=== PATIENT | male | born 1985 | race Caucasian/White ===

== ENCOUNTER → 2017-07-05 | Outpatient (CLI) | payer BC ==
--- NOTE | 2017-07-05 17:17 | ECHOF ---
Referral Reason:R00.2 Palpitations MEASUREMENTS -------- HEIGHT: 188.0 cm WEIGHT: 117.9 kg BP: RVIDd: 2.7 cm (< 3.3) IVSd: 1.0 cm (0.6 - 1.1) LVIDd: 5.0 cm (3.9 - 5.3) LVPWd: 1.0 cm (0.6 - 1.1) IVSs: 1.4 cm LVIDs: 3.8 cm LVPWs: 1.4 cm LAESV Index (A-L): 32.21 ml/m Ao Diam: 4.1 cm (2.0 - 3.7) AV Cusp: 2.8 cm (1.5 - 2.6) LA Diam: 4.0 cm (2.7 - 3.8) EPSS: 0.4 cm MV E Paxton: 0.70 m/s MV DecT: 192 ms MV A Pa[place]: 0.56 m/s MV E/A Ratio: 1.25 RAP: 5.00 mmHg RVSP: 10.01 mmHg MV EF SLOPE: 108.89 mm/s (70 - 150) MV EXCURSION: 2.19 cm (> 18.000) FINDINGS -------- Sinus rhythm. This was a technically good study. The left ventricular size is normal. Left ventricular wall thickness is normal. Overall left vent ricular systolic function is normal with, an EF between 55 - 60 %. The right ventricle is normal in size and function. Normal LA size by volume 22+/-6 ml/m2. The right atrium is normal in size. The aortic valve is trileaflet, and appears structurally normal. No aortic stenosis or regurgitation. The mitral valve is normal. There is trace mitral regurgitation. Trace tricuspid regurgitation present. Right ventricular systolic pressure is normal at < 35 mmHg. There is no evidence of pulmonary hypertension. The pulmonic valve is normal. The aortic root size is normal. Normal inferior vena cava with normal inspiratory collapse consistent with estimated right atrial pre ssure of 5 mmHg. There is no pericardial effusion. CONCLUSIONS -------- 1. Sinus rhythm. 2. This was a technically good study. 3. The left ventricular size is normal. 4. Left ventricular wall thickness is normal. 5. Overall left ventricular systolic function is normal with, an EF between 55 - 60 %. 6. Normal LA size by volume 22+/-6 ml/m2. 7. The aortic valve is trileaflet, and appears structurally normal. No aortic stenosis or regurgitati on. 8. There is trace mitral regurgitation. 9. Trace tricuspid regurgitation present. 10. Right ventricular systolic pressure is normal at < 35 mmHg. 11. There is no evidence of pulmonary hypertension. 12. The aortic root size is normal. 13. There is no pericardial effusion. [employer] PLANT OPERATOR: John Drew RDCS
== END ==
LOC: RADECHMAIN 16:03
PROVIDERS: ATTEND Family Medicine
DX: I08.1 Rheumatic disorders of both mitral and tricuspid valves (principal)
CPT/HCPCS: 93306

== ENCOUNTER → 2019-04-04 | Outpatient (CLI) | payer BC ==
--- NOTE | 2019-04-04 19:56 | CONS ---
CONSULTATION REASON FOR CONSULTATION: Sleep apnea. This is a 33-year-old male patient who was referred to me. His main complaint is feeling tired all the time. 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 He is very busy and he runs around all the time. By the time he comes home, sometimes he has difficulties in shutting down his brain and winding down and getting himself ready to go to sleep. Sometimes it takes him more than 30 minutes to fall asleep, yet this is not a constant pattern. He goes to bed around 11:00 p.m., wakes up at 6 a.m. in the morning. Not sure if he quits breathing. Not sure if he wakes up gasping for air. Sleep seems to be somewhat fragmented. He wakes up with a dry mouth and seems to be restless, especially in his legs while asleep. No recent weight gain. He has hypertension and hyperlipidemia as comorbid conditions. No history of any motor vehicle accident because of feeling drowsy or sleepy. He sleeps on his side. No sleepwalking or sleeptalking. No sleep paralysis. No hallucinations. No cataplexy. No naps. PAST MEDICAL HISTORY: Hypertension and hyperlipidemia. SURGICAL HISTORY: Tonsillectomy. DRUG ALLERGIES: SULFA AND PENICILLINS. OUTPATIENT MEDICATIONS: Outpatient medications include: 1. Lipitor 20 mg p.o. daily. 2. Hydrochlorothiazide 25 mg p.o. daily. 3. Losartan 100 mg p.o. daily. 4. [place]-3 fish oil. 5. Probiotics. SOCIAL HISTORY: Nonsmoker. No use of alcoholism. No history of IV drugs. FAMILY HISTORY: Brother has obstructive sleep apnea. REVIEW OF SYSTEMS: Fourteen-point review of systems was done. No recent weight gain or weight loss. No history of any vivid dreams during naps. He drinks 1 or 2 cups of coffee mainly in the morning. No late time drinking of alcohol. No significant exercise. He describes his bedroom environment to be quite comfortable and soothing for sleep. No grinding of the teeth. No nocturnal heartburn or chest pain. No shortness of breath, palpitation, anxiety or panic attacks. PHYSICAL EXAMINATION: VITAL SIGNS: BP is 145/84, pulse 82, respirations 16, temperature 98.2, saturation 96% on room air. Height is 6 feet 2 inches, weight 258, and neck size 16-1/4 inches. GENERAL APPEARANCE: Calm, comfortable. HEAD: Atraumatic, normocephalic. NECK: Supple. No JVD. No goiter or neck masses. Mallampati class I. LUNGS: Clear to auscultation. HEART: Heart sounds are regular rate and rhythm. Normal S1, S2. No S3, S4. No murmurs. ABDOMEN: Soft, nontender. No organomegaly. EXTREMITIES: No edema. No cyanosis or clubbing. NEUROLOGIC: Awake and alert. No focal neurological deficits. PSYCHIATRIC: Negative for anxiety or depression. SKIN: Negative for any wounds or ulceration. IMPRESSION: 1. Chronic fatigue with limited sleepiness. [place] score is 3. Consider obstructive sleep apnea, although my clinical suspicion is low. 2. Hypertension. 3. Hyperlipidemia. PLAN: 1. Proceed with a home sleep study. 2. Optimize sleep hygiene measures. 3. Relaxation techniques need to be implemented. The patient was given appropriate instructions to promote sleep at nighttime. 4. Will continue to follow and further recommendations are to follow based on the results of the home sleep study. MMODL / IJN: [id number] /
== END | disposition home or self-care (01) ==
LOC: SLEEP 16:09
PROVIDERS: ATTEND Internal Medicine Critical Care Medicine
DX: G47.33 Obstructive sleep apnea (adult) (pediatric) (principal); R53.82 Chronic fatigue, unspecified; I10 Essential (primary) hypertension; E78.5 Hyperlipidemia, unspecified; R68.2 Dry mouth, unspecified; Z79.899 Other long term (current) drug therapy; Z88.2 Allergy status to sulfonamides; Z88.0 Allergy status to penicillin
CPT/HCPCS: 99211

== ENCOUNTER 2022-05-22 10:20 | Emergency (ER) | payer BC ==
[2022-05-22 10:25] VITALS: RESP 18; TEMP 97.7
[2022-05-22] MEDS ORDERED: SODIUM CHLORIDE 0.9% 1,000 ML IV STA (10:44)
[2022-05-22] MEDS ORDERED: diphenhydrAMINE 50 MG/ML 1 ML VIAL IVP STA (10:44)
[2022-05-22] MEDS ORDERED: FAMOTIDINE 20 MG/2 ML VIAL IV STA (10:44)
--- NOTE | 2022-05-22 11:16 | ED ---
Skin/Abscess/FB HPI - General Chief complaint: Skin/Abscess/Foreign Body Stated complaint: Hives Time Seen by Provider: 05/22/22 10:27 Source: patient, RN notes reviewed Mode of arrival: ambulatory Limitations: no limitations - History of Present Illness Initial comments: This is a 36-year-old male who presents to the emergency department for a rash. States that this been present for the last 1-2 weeks. He went to his primary care provider when this first occurred. He was given a steroid shot and put on a five-day course of prednisone. States that he did not like how it made him feel, however it did take the edge off of the rash. States that it is very itchy and he is unable to get it under control. Unsure if he may have come into contact with anything, but has changed all of his sheets as well as his diet. Denies taking any new medications. He states that the rash is on his upper and lower extremities, worse on the legs. Denies any history of similar symptoms in the past. He has no chest pain or difficulty breathing. Denies any fevers, chills, sore throat, cough, dyspnea, chest pain, palpitations, abdominal pain, nausea, vomiting, diarrhea, back pain, or headaches. MD complaint: rash Onset/Timin -: week(s) Tetanus Up to Date: yes Location: generalized - Related Data Home Medications Medication Instructions Recorded Confirmed Losartan/Hydrochlorothiazide 1 tab PO DAILY 05/22/22 05/22/22 [Losartan-Hctz 100-12.5 mg Tab] amLODIPine [Norvasc] 5 mg PO HS 05/22/22 05/22/22 Previous Rx's Medication Instructions Recorded dexAMETHasone [Decadron] 6 mg PO DAILY 5 Days #5 tablet 05/22/22 hydrOXYzine HCL [Atarax] 25 mg PO QID PRN #15 tab 05/22/22 Allergies Allergy/AdvReac Type Severity Reaction Status Date / Time amoxicillin [From Augmentin] Allergy Unknown Verified 05/22/22 11:10 clavulanic acid Allergy Unknown Verified 05/22/22 11:10 [From Augmentin] sulfamethoxazole Allergy Unknown Verified 05/22/22 11:10 [From Bactrim] trimethoprim [From Bactrim] Allergy Unknown Verified 05/22/22 11:10 Review of Systems ROS Statement: Those systems with pertinent positive or pertinent negative responses have been documented in the HPI. ROS Other: All systems not noted in ROS Statement are negative. Past Medical History Past Medical History: Hyperlipidemia, Hypertension History of Any Multi-Drug Resistant Organisms: None Reported Past Surgical History: No Surgical Hx Reported Past Psychological History: No Psychological Hx Reported Smoking Status: Never smoker Past Alcohol Use History: None Reported Past Drug Use History: Marijuana General Exam Limitations: no limitations General appearance: alert, in no apparent distress Head exam: Present: atraumatic, normocephalic, normal inspection Respiratory exam: Present: normal lung sounds bilaterally. Absent: respiratory distress, wheezes, rales, rhonchi, stridor Cardiovascular Exam: Present: regular rate, normal rhythm, normal heart sounds. Absent: systolic murmur, diastolic murmur, rubs, gallop, clicks Neurological exam: Present: alert, oriented X3, CN II-XII intact Psychiatric exam: Present: normal affect, normal mood Skin exam: Present: other (Diffuse maculopapular rash with excoriation, most prominent on the upper and lower extremities. No involvement of the palms or soles. Positive dermatographism. Negative Nikolsky sign.) Course Vital Signs 05/22/22 05/22/22 10:21 14:10 Temperature 97.7 F Pulse Rate 82 76 Respiratory 18 18 Rate Blood Pressure 168/123 135/94 O2 Sat by Pulse 99 99 Oximetry Medical Decision Making - Medical Decision Making This is a 36-year-old male who presents to the emergency department for a rash. Was pt. sent in by a medical professional or institution? @ -No Did you speak to anyone other than the patient for history? @ -No Did you review nursing and triage notes? @ -Yes, and I agree, it is accurate with regards to the patient's symptoms. Were old charts reviewed? @ -No Differential Diagnosis? @ -Differential Rash: Roseola, measles, Lyme disease, erythema multiforme, cellulitis, toxic shock syndrome, Wilver Jeffery syndrome, Kawasaki disease, julee mountain spotted fever, contact dermatitis, allergic dermatitis, measles, mumps, rubella, va ricella, meningococcal disease, drug reaction, coxsackievirus, This is not meant to be an all-inclusive list. What testing was considered but not performed? (CT, X-rays, U/S, labs)? Why? @ -None What meds were considered but not given? Why? @ -None Did you discuss the management of the patient with other professionals? @ -No Did you reconcile home meds? @ -No Was smoking cessation discussed for >3mins.? @ -No Was critical care preformed (if so, how long)? @ -No Were there social determinants of health that impacted care today? How? (Homelessness, low income, unemployed, alcoholism, drug addiction, transportation, low edu. Level, literacy, decrease access to med. care, halfway, rehab)? @ -No Was there de-escalation of care discussed even if they declined? (Discuss DNR or withdrawal of care, Hospice)? @ -No What co-morbidities impacted this encounter? (DM, HTN, Smoking, COPD, CAD, Cancer, CVA, Hep., AIDS, mental health diagnosis, sleep apnea, morbid obesity)? @ -None Was patient admitted / discharged? @ -Discharged. Lab work obtained to evaluate for signs of liver or kidney impairment, however lab work revealed no actionable findings. He was given IV fluids, Benadryl, and Pepcid initially. States that this did offer improvement to his symptoms. Discussed that he may not have been on a long enough course of steroids, and these are often the mainstay of treatment. Patient is open to trying an additional steroid. We tried a dose of Decadron in the emergency department, which he states he tolerated much better than the Solu-Medrol. Also states that this further improved his itching. Prescription for 5 day course of Decadron provided as well as a prescription for Atarax with dosing instructions reviewed. Advised that the Atarax may be sedating and he should take it at night until he knows how it affects him. Also recommended continuing to take [id number] Pepcid. I spoke with case management, who was able to get him an appointment with dermatology, however, they do not have an appointment until June, and he will need an official referral from his primary care provider. The appointment was made for 07/02, and a follow-up with his primary care provider was scheduled for 05/26, where he can get an official referral if needed. Undiagnosed new problem with uncertain prognosis? @ -None Drug Therapy requiring intensive monitoring for toxicity (Heparin, Nitro, Insulin, Cardizem)? @ -None Were any procedures done? @ -None Diagnosis/symptom? @ -Urticaria, rash of unknown etiology Acute, or Chronic, or Acute on Chronic? @ -Acute Uncomplicated (without systemic symptoms) or Complicated (systemic symptoms)? @ -Uncomplicated Side effects of treatment? @ -None Exacerbation, Progression, or Severe Exacerbation] @ -Not applicable Poses a threat to life or bodily function? @ -No Return precautions reviewed in depth, the patient is instructed to return to the emergency department with any new, worsening, or concerning symptoms. Patient verbalized understanding. This case was discussed in detail with the attending ED physician, Dr. Guerrero. Presentation, findings, and treatment plan discussed in detail as well. - Lab Data Result diagrams: 05/22/22 11:00 05/22/22 11:00 Lab Results 05/22/22 05/22/22 05/22/22 Range/Units 11:00 11:00 11:00 WBC 8.9 (3.8-10.6) k/uL RBC 5.74 (4.30-5.90) m/uL Hgb 17.8 H (13.0-17.5) gm/dL Hct 50.3 (39.0-53.0) % MCV 87.5 (80.0-100.0) fL MCH 31.0 (25.0-35.0) pg MCHC 35.4 (31.0-37.0) g/dL RDW 12.0 (11.5-15.5) % Plt Count 237 (150-450) k/uL MPV 7.8 Neutrophils % 74 % Lymphocytes % 12 % Monocytes % 7 % Eosinophils % 3 % Basophils % 1 % Neutrophils # 6.6 (1.3-7.7) k/uL Lymphocytes # 1.1 (1.0-4.8) k/uL Monocytes # 0.6 (0-1.0) k/uL Eosinophils # 0.3 (0-0.7) k/uL Basophils # 0.1 (0-0.2) k/uL Sodium 137 (137-145) mmol/L Potassium 3.9 (3.5-5.1) mmol/L Chloride 102 (98-107) mmol/L Carbon Dioxide 23 (22-30) mmol/L Anion Gap 12 mmol/L BUN 22 H (9-20) mg/dL Creatinine 0.88 (0.66-1.25) mg/dL Est GFR (CKD-EPI)AfAm >90 (>60 ml/min/1.73 sqM) Est GFR (CKD-EPI)NonAf >90 (>60 ml/min/1.73 sqM) Glucose 103 H (74-99) mg/dL Calcium 9.6 (8.4-10.2) mg/dL Total Bilirubin 1.6 H (0.2-1.3) mg/dL AST 21 (17-59) U/L ALT 23 (4-49) U/L Alkaline Phosphatase 56 (38-126) U/L C-Reactive Protein <0.5 (<1.0) mg/dL Total Protein 8.2 (6.3-8.2) g/dL Albumin 5.0 (3.5-5.0) g/dL TSH 1.410 (0.465-4.680) mIU/L Urine Color Urine Appearance (Clear) Urine pH (5.0-8.0) Ur Specific [place] (1.001-1.035) Urine Protein (Negative) Urine Glucose (UA) (Negative) Urine Ketones (Negative) Urine Blood (Negative) Urine Nitrite (Negative) Urine Bilirubin (Negative) Urine Urobilinogen (<2.0) mg/dL Ur Leukocyte Esterase (Negative) Treponema pallidum Ab (Nonreactive) Heterophile Antibody Negative (Negative) 05/22/22 05/22/22 Range/Units 11:00 14:07 WBC (3.8-10.6) k/uL RBC (4.30-5.90) m/uL Hgb (13.0-17.5) gm/dL Hct (39.0-53.0) % MCV (80.0-100.0) fL MCH (25.0-35.0) pg MCHC (31.0-37.0) g/dL RDW (11.5-15.5) % Plt Count (150-450) k/uL MPV Neutrophils % % Lymphocytes % % Monocytes % % Eosinophils % % Basophils % % Neutrophils # (1.3-7.7) k/uL Lymphocytes # (1.0-4.8) k/uL Monocytes # (0-1.0) k/uL Eosinophils # (0-0.7) k/uL Basophils # (0-0.2) k/uL Sodium (137-145) mmol/L Potassium (3.5-5.1) mmol/L Chloride (98-107) mmol/L Carbon Dioxide (22-30) mmol/L Anion Gap mmol/L BUN (9-20) mg/dL Creatinine (0.66-1.25) mg/dL Est GFR (CKD-EPI)AfAm (>60 ml/min/1.73 sqM) Est GFR (CKD-EPI)NonAf (>60 ml/min/1.73 sqM) Glucose (74-99) mg/dL Calcium (8.4-10.2) mg/dL Total Bilirubin (0.2-1.3) mg/dL AST (17-59) U/L ALT (4-49) U/L Alkaline Phosphatase (38-126) U/L C-Reactive Protein (<1.0) mg/dL Total Protein (6.3-8.2) g/dL Albumin (3.5-5.0) g/dL TSH (0.465-4.680) mIU/L Urine Color Yellow Urine Appearance Clear (Clear) Urine pH 6.5 (5.0-8.0) Ur Specific [place] 1.019 (1.001-1.035) Urine Protein Negative (Negative) Urine Glucose (UA) Negative (Negative) Urine Ketones 2+ H (Negative) Urine Blood Negative (Negative) Urine Nitrite Negative (Negative) Urine Bilirubin Negative (Negative) Urine Urobilinogen <2.0 (<2.0) mg/dL Ur Leukocyte Esterase Negative (Negative) Treponema pallidum Ab Nonreactive (Nonreactive) Heterophile Antibody (Negative) - Radiology Data Radiology results: report reviewed, image reviewed Disposition Clinical Impression: Rash of unknown etiology, Urticaria Disposition: HOME SELF-CARE Condition: Fair Instructions (If sedation given, give patient instructions): Urticaria (ED), Acute Rash (ED) Additional Instructions: Return to the emergency department with any new, worsening, or concerning symptoms. Take the Decadron daily for 5 days. If you feel like this makes you flushed or your blood pressure gets too high, you can stop taking it. The Atarax can be used up to every 6 hours as needed for itching. Be aware that this may make you sleepy, and you should take it at night until you know how it affects you. Additionally, you can take [id number] Pepcid, which will offer additional benefit to the rash and itching. The steroid cream provided can be used 3-4 times daily. Apply this to the affected areas, but avoid applying to the face or genitals. Follow up with your primary care provider as scheduled and make sure that you get an official dermatology referral for insurance purposes. You have an appointment with them scheduled on 07/02 as listed below. Prescriptions: hydrOXYzine HCL [Atarax] 25 mg PO QID PRN #15 tab PRN Reason: Itching dexAMETHasone [Decadron] 6 mg PO DAILY 5 Days #5 tablet Is patient prescribed a controlled substance at d/c from ED?: No Referrals: Shelton Cardozo MD [STAFF PHYSICIAN] - 07/02/22 9:30 am (Insurance requires a referral from the PCP, make sure to bring this referral to appointment. This appointment is with CALEB Mccartney.) John Lopez MD [Primary Care Provider] - 05/26/22 2:10 pm (Make sure office faxes referral to dermatology so appointment can be kept. )
[2022-05-22 11:32] LABS: ALT 23 U/L (4-49); AST 21 U/L (17-59); African American GFR (CKD) >90 (>60 ml/min/1.73 sqM); Alkaline Phosphatase 56 U/L (38-126); Anion Gap 12 mmol/L; Blood Urea Nitrogen 22 mg/dL (9-20); Calcium 9.6 mg/dL (8.4-10.2); Carbon Dioxide 23 mmol/L (22-30); Chloride 102 mmol/L (98-107); Glucose 103 mg/dL (74-99); Non-African American GFR(CKD) >90 (>60 ml/min/1.73 sqM); Potassium 3.9 mmol/L (3.5-5.1); Sodium 137 mmol/L (137-145); Total Bilirubin 1.6 mg/dL (0.2-1.3); Total Protein 8.2 g/dL (6.3-8.2)
[2022-05-22 11:46] LABS: C Reactive Protein <0.5 mg/dL (<1.0)
[2022-05-22 11:59] LABS: Basophils # (A) 0.1 k/uL (0-0.2); Basophils % (A) 1 %; Eosinophils # (A) 0.3 k/uL (0-0.7); Eosinophils % (A) 3 %; HCT 50.3 % (39.0-53.0); HGB 17.8 gm/dL (13.0-17.5); Lymphocytes # (A) 1.1 k/uL (1.0-4.8); Lymphocytes % (A) 12 %; MCHC 35.4 g/dL (31.0-37.0); MCV 87.5 fL (80.0-100.0); Mean Platelet Volume 7.8; Monocytes # (A) 0.6 k/uL (0-1.0); Monocytes % (A) 7 %; Neutrophils # (A) 6.6 k/uL (1.3-7.7); Neutrophils % (A) 74 %; Platelet Count 237 k/uL (150-450); RBC 5.74 m/uL (4.30-5.90); WBC 8.9 k/uL (3.8-10.6)
[2022-05-22] MEDS ORDERED: DEXAMETHASONE SOD PHOSPHATE 10 MG/ML 1 ML VIAL IVP STA (12:57)
[2022-05-22] MEDS ORDERED: TRIAMCINOLONE 0.1% CREAM 80 GM TUBE TOPICAL STA (12:59)
[2022-05-22] MEDS ORDERED: TRIAMCINOLONE 0.1% CREAM 80 GM TUBE TOPICAL SCH (13:30)
[2022-05-22 14:11] VITALS: BP 135/94; PULSE 76
[2022-05-22 14:15] LABS: Appearance,Urine Clear (Clear); Bilirubin,Urine Negative (Negative); Blood,Urine Negative (Negative); Color,Urine Yellow; Glucose,Urine (UA) Negative (Negative); Ketones,Urine 2+ (Negative); Leukocyte Esterase,Urine Negative (Negative); Nitrite,Urine Negative (Negative); PH, Urine 6.5 (5.0-8.0); Protein,Urine Negative (Negative); Specific Gravity,Urine 1.019 (1.001-1.035); Urobilinogen,Urine <2.0 mg/dL (<2.0)
== END 2022-05-22 14:40 | disposition home or self-care (01) ==
LOC: EC 10:20
DX: L50.9 Urticaria, unspecified (principal); I10 Essential (primary) hypertension; F12.90 Cannabis use, unspecified, uncomplicated; Z88.2 Allergy status to sulfonamides; Z88.1 Allergy status to other antibiotic agents
CPT/HCPCS: 99283 ×2; 96374 ×2; 96375 ×2; 96361 ×2; 36415; 80053; 84443; 85025; 86140; 86308; 81003; 86780; J1200; J1100